=== PATIENT | female | born 1945 | race Caucasian/White ===

== ENCOUNTER → 2024-02-10 08:32 | Outpatient (REF) | payer MEDICARE, OTHER, SELFPAY ==
[2024-02-10 09:22] LABS: % Basophils 0.5 % (0-2); % Eosinophils 2.9 % (0-6); % Immature Granulocytes 0.5 % (0-0.5); % Lymphocytes 48.3 % (20.5-51.1); % Neutrophils 42.8 % (42.2-75.2); Absolute Eosinophils 0.2 10^3/uL (0-0.7); Absolute Lymphocytes 2.8 10^3/uL (1.2-3.4); Absolute Monocytes 0.3 10^3/uL (0.1-0.6); Absolute Neutrophils 2.5 10^3/uL (1.4-6.5); Hematocrit 36.6 % (37.0-47.0); Hemoglobin 12.2 g/dL (12.0-16.0); Mean Corp Hgb Conc. 33.3 g/dL (33.0-37.0); Mean Corpuscular Hgb 31.2 pg (27.0-31.0); Mean Corpuscular Volume 93.6 fL (81.0-99.0); Mean Platelet Volume 10.3 fL (7.4-10.4); Nucleated Red Blood Cells % 0 %; Platelet Count 148 10^3/uL (130-400); Red Blood Cell Count 3.91 10^6/uL (4.20-5.40); Red Cell Dist. Width 13.8 % (11.5-14.5); White Blood Cell Count 5.8 10^3/uL (4.8-10.8)
[2024-02-10 10:00] LABS: ALT (SGPT) 19 U/L (0-35); AST (SGOT) 24 U/L (14-36); Albumin 3.8 g/dl (3.5-5.0); Alkaline Phosphatase 57 U/L (38-126); Blood Urea Nitrogen 20 mg/dl (7-17); Calcium 9.5 mg/dl (8.4-10.2); Carbon Dioxide 31 mmol/L (22-30); Chloride 102 mmol/L (98-107); Glucose 96 mg/dl (70-99); HDL Cholesterol 46 mg/dl; LDL Cholesterol, Calculated 64 mg/dl; Potassium 3.7 mmol/L (3.5-5.1); Sodium 140 mmol/L (135-145); Total Bilirubin 0.5 mg/dl (0.2-1.3); Total Cholesterol 140 mg/dl (50-199); Total Protein 5.9 g/dl (6.3-8.2); Triglyceride 153 mg/dl (10-149); Very Low Density Lipoprotein 30 mg/dl (0-30); eGFR > 60.00
[2024-02-10 10:28] LABS: TSH Reflex To Free T4 0.21 uIU/ml (0.47-4.68)
== END ==
LOC: REG 08:32
PROVIDERS: ATTENDING PHYSICIAN Nurse Practitioner; FAMILY PHYSICIAN Internal Medicine
DX: Z00.01 Encounter for general adult medical examination with abnormal findings (principal); I10 Essential (primary) hypertension; E03.9 Hypothyroidism, unspecified; E66.01 Morbid (severe) obesity due to excess calories; R56.9 Unspecified convulsions
CPT/HCPCS: 36415; 80053; 80061; 84439; 84443; 85025

== ENCOUNTER 2024-04-28 15:30 | Emergency (ER) | payer MEDICARE, OTHER, SELFPAY ==
[2024-04-28 15:33] VITALS: BP 182/90
[2024-04-28 15:57] LABS: % Basophils 0.4 % (0-2); % Eosinophils 2.9 % (0-6); % Immature Granulocytes 0.3 % (0-0.5); % Lymphocytes 24.1 % (20.5-51.1); % Monocytes 6.4 % (1.7-9.3); % Neutrophils 65.9 % (42.2-75.2); Absolute Eosinophils 0.2 10^3/uL (0-0.7); Absolute Lymphocytes 1.7 10^3/uL (1.2-3.4); Absolute Monocytes 0.4 10^3/uL (0.1-0.6); Absolute Neutrophils 4.5 10^3/uL (1.4-6.5); Hematocrit 38.1 % (37.0-47.0); Hemoglobin 12.4 g/dL (12.0-16.0); Mean Corp Hgb Conc. 32.5 g/dL (33.0-37.0); Mean Corpuscular Hgb 30.9 pg (27.0-31.0); Mean Platelet Volume 10.7 fL (7.4-10.4); Nucleated Red Blood Cells % 0 %; Platelet Count 136 10^3/uL (130-400); Red Blood Cell Count 4.01 10^6/uL (4.20-5.40); White Blood Cell Count 6.8 10^3/uL (4.8-10.8)
[2024-04-28 16:06] LABS: ALT (SGPT) 17 U/L (0-35); AST (SGOT) 26 U/L (14-36); Albumin 4.1 g/dl (3.5-5.0); Alkaline Phosphatase 66 U/L (38-126); Blood Urea Nitrogen 21 mg/dl (7-17); Calcium 9.5 mg/dl (8.4-10.2); Carbon Dioxide 28 mmol/L (22-30); Chloride 105 mmol/L (98-107); Glucose 102 mg/dl (70-99); Potassium 4.5 mmol/L (3.5-5.1); Sodium 139 mmol/L (135-145); Total Bilirubin 0.9 mg/dl (0.2-1.3); Total Protein 6.2 g/dl (6.3-8.2); eGFR > 60.00
--- NOTE | 2024-04-28 17:17 | ED.GENMED ---
History of Present Illness
General
Chief Complaint: Skin Problem
Source: patient
Time Seen by Provider: 04/28/24 16:22
Travel History
Have you had any contact with someone who has COVID-19?: No
Do you have any symptoms of coronavirus? Fever > 100 degrees, chills, cough, shortness of breath, sore throat, loss of taste or smell, muscle aches, or headache?: No
History of Present Illness
History of Present Illness:
78-year-old female presents to the emergency room for evaluation of a wound that she believes is infected. Patient was traveling last week and struck the left lower leg object creating an injury. She was seen at a medical facility close to where
she was and sutures were placed. The wound had been feeling okay at evidently healing well up until the past 3 to 4 days when she observed redness appearing. The area around the wound has been quite tender. She denies any fever or chills.
Past History
Past History
ED Past Medical History: Arrthythmia (afib on Coumadin), HTN, Seizures and Hypothyroidism
ED Past Surgical History: Gynecological and Orthopedic
Social History
Tobacco: Non-smoker
Alcohol: Occasional
Drug: None
Personal:
Living: with family
Phy Exam
Physical Exam
Physical Exam:
General: Awake, Alert, Oriented X3. No acute distress.
Vitals: unremarkable
Head: Atraumatic
Eyes: Pupils equal, EOMI
Throat: Airway intact, no exudates
Neck: Trachea midline
Neuro: Nonfocal
Skin: Warm, dry, no rash
Extremities: pulses equal b/l.
Left lower extremity is observed to have a 4 cm x 2 cm area of erythema with a sutured wound in the center. This appears to have been a skin flap which was sutured closed. What appears to be the flap portion of the wound is looking
somewhat necrotic.. There is no purulent discharge.
Course
Orders/Labs/Results
Orders:
Orders
04/28/24 15:41
CMP [Comprehensive Metabolic Panel] Urgent
Complete Blood Count/With Diff Urgent
04/28/24 17:16
Doxycycline [Vibramycin] 100 mg PO NOW STA
Abnormal Lab Results
04/28/24
15:41
RBC 4.01 L 10^6/uL
(4.20-5.40)
MCHC 32.5 L g/dL
(33.0-37.0)
MPV 10.7 H fL
(7.4-10.4)
BUN 21 H mg/dl
(7-17)
Glucose 102 H mg/dl
(70-99)
Total Protein 6.2 L g/dl
(6.3-8.2)
04/28/24 15:41
04/28/24 15:41
Vital Signs
Initial and Last Documented VS:
Initial Vital Signs
Temp Pulse Resp BP Pulse Ox
98.3 F 80 20 182/90 95
04/28/24 15:33 04/28/24 15:33 04/28/24 15:33 04/28/24 15:33 04/28/24 15:33
Last Documented Vital Signs
Temp Pulse Resp BP Pulse Ox
98.3 F 78 18 168/84 95
04/28/24 15:33 04/28/24 17:25 04/28/24 17:25 04/28/24 17:25 04/28/24 17:25
MDM/Problems Addressed
Differential Diagnosis Includes:
Wound infection, reaction to suture material, abscess
MDM/Problems Addressed:
This does appear to be an infected wound. Sutures were removed. Wound edges remain approximated. No significant purulent discharge. Some of the sutures pulled through the skin very easily suggesting that it was a very thin layer of skin. Wound
will be treated with Neosporin and a dressing. Will start doxycycline to cover MRSA. Considered Bactrim but given her age and the fact that she is on Entresto concerned about hyper kalemia with Bactrim. Patient does not appear to require
hospitalization. Will discharge her on Doxy have her follow-up with the wound care center
*Pulse Oximetry
Patient hypoxic: no
*Critical Care Note
Total Time (30-74mins, 75-104mins- exclusive of procedures): Not Applicable
ED Attending Note
-
Portions of this chart may have been created with voice recognition software.� Occasional wrong word or��sound alike� substitutions may have occurred due to the inherent limitations of voice recognition software.
Discharge Plan
Departure
Patient Disposition: Home (Routine Discharge)
Date of Disposition: 04/28/24
Time of Disposition: 17:17
Patient with high blood pressure during this ER visit?: Yes
Condition: Good
Discharge Problem:
Infected wound
Instructions: Wound Infection, BLOOD PRESSURE
Prescriptions:
New
doxycycline monohydrate 100 mg capsule
100 mg PO BID Qty: 14 0RF
No Action
lacosamide [Vimpat] 150 MG tablet
150 mg PO BID 30 Days Qty: 60 0RF
furosemide [Lasix] 40 mg Tablet
40 mg PO DAILY
pentoxifylline 400 mg Tablet Extended Release
400 mg PO TID
Hold Instructions: Resume on 10/01/22.
Farxiga 10 mg Tablet
10 mg PO DAILY
Entresto 97-103 mg Tablet
1 tab PO BID
atorvastatin 20 mg Tablet
20 mg PO QPM Qty: 30 0RF
levothyroxine 150 MCG tablet
100 mcg PO DAILY
acetaminophen-codeine 300-60 mg Tablet
1 tab PO Q6H PRN (Reason: pain)
Santyl 250 unit/gram Ointment
1 applic TOPICAL DAILY PRN (Reason: rash)
metronidazole 1 % Gel
1 applic TOPICAL DAILY
multivitamin Tablet
1 tab PO DAILY
coenzyme Q10 [CoQ-10] 100 mg Capsule
100 mg PO DAILY
glucosamine sulfate [Glucosamine] 500 mg Tablet
500 mg PO DAILY
taimufyf-zope-clcwm-oreg-capry 100 mg-150 mg- 50 mg-150 mg Capsule
1 cap PO
Probiotic Acidophilus 1.5 mg (250 million cell) Capsule
1,000 mmu cells PO DAILY
gabapentin 400 mg Capsule
400 mg PO HS Qty: 30 0RF
gabapentin 100 mg Capsule
100 mg PO DAILY Qty: 30 0RF
metoprolol succinate 25 mg Tablet Extended Release 24 Hr
25 mg PO DAILY Qty: 90 1RF
Eliquis 5 mg tablet
5 mg PO BID Qty: 60 1RF
Rx Instructions:
Start 09/23/22
Referrals:
Geoff Miranda MD [Family Provider] -
[facility] [[facility]] -
Interventions
Interventions:
*Risk Screen - Suicide Last Done: 04/28/24 15:33
*General Assessment Last Done: 04/28/24 15:33
*Neglect/Abuse Screening Last Done: 04/28/24 15:33
ED- Fall Risk Assessment Last Done: 04/28/24 17:25
*Nursing Disposition Last Done: 04/28/24 17:34
ED-Skin Assessment Last Done: 04/28/24 17:25
Discharge Date and Time
Discharge Date/Time: 04/28/24 17:35
Print Language: LITHUANIAN
[2024-04-28 17:25] VITALS: BP 168/84
[2024-04-28] MEDS: VIBRAMYCIN 100 MG PO (17:28)
== END 2024-04-28 17:35 | disposition home or self-care (01) ==
LOC: EMR 15:30
PROVIDERS: Emergency Medicine; EMERGENCY PHYSICIAN Emergency Medicine; FAMILY PHYSICIAN Internal Medicine
DX: T81.41XA Infection following a procedure, superficial incisional surgical site, initial encounter (principal); L08.9 Local infection of the skin and subcutaneous tissue, unspecified; Y83.8 Other surgical procedures as the cause of abnormal reaction of the patient, or of later complication, without mention of misadventure at the time of the procedure; I10 Essential (primary) hypertension; I48.91 Unspecified atrial fibrillation; E03.9 Hypothyroidism, unspecified; R56.9 Unspecified convulsions; Z79.01 Long term (current) use of anticoagulants
CPT/HCPCS: 99283; 80053; 85025

== ENCOUNTER → 2024-06-28 12:52 | Outpatient (REF) | payer MEDICARE, OTHER, SELFPAY | LOC: WOUND 12:52 | PROVIDERS: ATTENDING PHYSICIAN Surgery; FAMILY PHYSICIAN Internal Medicine | DX: L97.222 Non-pressure chronic ulcer of left calf with fat layer exposed (principal); I87.2 Venous insufficiency (chronic) (peripheral); I83.029 Varicose veins of left lower extremity with ulcer of unspecified site; E66.01 Morbid (severe) obesity due to excess calories; R60.0 Localized edema; Z79.01 Long term (current) use of anticoagulants; I48.0 Paroxysmal atrial fibrillation; I10 Essential (primary) hypertension; Z96.652 Presence of left artificial knee joint | CPT/HCPCS: 11042; 99214 ==

== ENCOUNTER → 2024-07-06 11:28 | Outpatient (REF) | payer MEDICARE, OTHER, SELFPAY | LOC: WOUND 11:28 | PROVIDERS: ATTENDING PHYSICIAN Surgery; FAMILY PHYSICIAN Internal Medicine | DX: L97.222 Non-pressure chronic ulcer of left calf with fat layer exposed (principal); I87.2 Venous insufficiency (chronic) (peripheral); L03.116 Cellulitis of left lower limb; I83.029 Varicose veins of left lower extremity with ulcer of unspecified site; E66.01 Morbid (severe) obesity due to excess calories; R60.0 Localized edema; I48.0 Paroxysmal atrial fibrillation; Z96.652 Presence of left artificial knee joint; Z79.01 Long term (current) use of anticoagulants | CPT/HCPCS: 11042 ==

== ENCOUNTER → 2024-07-13 11:25 | Outpatient (REF) | payer MEDICARE, OTHER, SELFPAY | LOC: WOUND 11:25 | PROVIDERS: ATTENDING PHYSICIAN Surgery; FAMILY PHYSICIAN Internal Medicine | DX: L97.222 Non-pressure chronic ulcer of left calf with fat layer exposed (principal); L03.116 Cellulitis of left lower limb; I83.029 Varicose veins of left lower extremity with ulcer of unspecified site; E66.01 Morbid (severe) obesity due to excess calories; R60.0 Localized edema; Z79.01 Long term (current) use of anticoagulants; I48.0 Paroxysmal atrial fibrillation; I10 Essential (primary) hypertension; Z96.652 Presence of left artificial knee joint | CPT/HCPCS: 11042; 11045 ==

== ENCOUNTER → 2024-07-20 10:29 | Outpatient (REF) | payer MEDICARE, OTHER, SELFPAY | LOC: WOUND 10:29 | PROVIDERS: ATTENDING PHYSICIAN Surgery; FAMILY PHYSICIAN Internal Medicine | DX: L97.222 Non-pressure chronic ulcer of left calf with fat layer exposed (principal); I87.2 Venous insufficiency (chronic) (peripheral); I73.9 Peripheral vascular disease, unspecified; E83.59 Other disorders of calcium metabolism; I83.029 Varicose veins of left lower extremity with ulcer of unspecified site; E66.01 Morbid (severe) obesity due to excess calories; R60.0 Localized edema; Z79.01 Long term (current) use of anticoagulants; I48.0 Paroxysmal atrial fibrillation; I10 Essential (primary) hypertension; Z96.652 Presence of left artificial knee joint | CPT/HCPCS: 29581; 99214 ==

== ENCOUNTER → 2024-07-27 11:01 | Outpatient (REF) | payer MEDICARE, OTHER, SELFPAY | LOC: WOUND 11:01 | PROVIDERS: ATTENDING PHYSICIAN Surgery; FAMILY PHYSICIAN Internal Medicine | DX: I87.313 Chronic venous hypertension (idiopathic) with ulcer of bilateral lower extremity (principal); L97.222 Non-pressure chronic ulcer of left calf with fat layer exposed; L97.211 Non-pressure chronic ulcer of right calf limited to breakdown of skin; I87.2 Venous insufficiency (chronic) (peripheral); I73.9 Peripheral vascular disease, unspecified; E83.59 Other disorders of calcium metabolism; E66.01 Morbid (severe) obesity due to excess calories; R60.0 Localized edema; I48.0 Paroxysmal atrial fibrillation; Z79.01 Long term (current) use of anticoagulants; I10 Essential (primary) hypertension; Z96.652 Presence of left artificial knee joint | CPT/HCPCS: 97597 ==

== ENCOUNTER → 2024-08-03 10:53 | Outpatient (REF) | payer MEDICARE, OTHER, SELFPAY | LOC: WOUND 10:53 | PROVIDERS: ATTENDING PHYSICIAN Surgery; FAMILY PHYSICIAN Internal Medicine | DX: I87.313 Chronic venous hypertension (idiopathic) with ulcer of bilateral lower extremity (principal); L97.222 Non-pressure chronic ulcer of left calf with fat layer exposed; L97.211 Non-pressure chronic ulcer of right calf limited to breakdown of skin; I87.2 Venous insufficiency (chronic) (peripheral); I73.9 Peripheral vascular disease, unspecified | CPT/HCPCS: 29580 ==

== ENCOUNTER → 2024-08-10 12:42 | Outpatient (REF) | payer MEDICARE, OTHER, SELFPAY | LOC: WOUND 12:42 | PROVIDERS: ATTENDING PHYSICIAN Surgery; FAMILY PHYSICIAN Internal Medicine | DX: I87.313 Chronic venous hypertension (idiopathic) with ulcer of bilateral lower extremity (principal); L97.222 Non-pressure chronic ulcer of left calf with fat layer exposed; L97.211 Non-pressure chronic ulcer of right calf limited to breakdown of skin; I87.2 Venous insufficiency (chronic) (peripheral); I73.9 Peripheral vascular disease, unspecified; E83.59 Other disorders of calcium metabolism; I83.029 Varicose veins of left lower extremity with ulcer of unspecified site; E66.01 Morbid (severe) obesity due to excess calories; R60.0 Localized edema; I48.0 Paroxysmal atrial fibrillation; I10 Essential (primary) hypertension; Z96.652 Presence of left artificial knee joint; Z79.01 Long term (current) use of anticoagulants | CPT/HCPCS: 29580; 99213 ==

== ENCOUNTER → 2024-08-17 10:02 | Outpatient (REF) | payer MEDICARE, OTHER, SELFPAY | LOC: WOUND 10:02 | PROVIDERS: ATTENDING PHYSICIAN Surgery; FAMILY PHYSICIAN Internal Medicine | DX: I87.313 Chronic venous hypertension (idiopathic) with ulcer of bilateral lower extremity (principal); L97.222 Non-pressure chronic ulcer of left calf with fat layer exposed; L97.211 Non-pressure chronic ulcer of right calf limited to breakdown of skin; I87.2 Venous insufficiency (chronic) (peripheral); I73.9 Peripheral vascular disease, unspecified; E83.59 Other disorders of calcium metabolism; I83.029 Varicose veins of left lower extremity with ulcer of unspecified site; E66.01 Morbid (severe) obesity due to excess calories; R60.0 Localized edema; Z79.01 Long term (current) use of anticoagulants; I48.0 Paroxysmal atrial fibrillation; Z96.652 Presence of left artificial knee joint | CPT/HCPCS: 29580; 99213 ==

== ENCOUNTER → 2024-08-17 10:53 | Outpatient (REF) | payer MEDICARE, OTHER, SELFPAY ==
[2024-08-17 12:43] LABS: ALT (SGPT) 24 U/L (0-35); AST (SGOT) 31 U/L (14-36); Albumin 4.1 g/dl (3.5-5.0); Alkaline Phosphatase 72 U/L (38-126); Direct Bilirubin 0.2 mg/dl (0.0-0.4); HDL Cholesterol 45 mg/dl; LDL Cholesterol, Calculated 78 mg/dl; Total Bilirubin 0.8 mg/dl (0.2-1.3); Total Cholesterol 149 mg/dl (50-199); Total Protein 6.1 g/dl (6.3-8.2); Triglyceride 133 mg/dl (10-149); Very Low Density Lipoprotein 26 mg/dl (0-30)
[2024-08-17 12:54] LABS: Free T4 1.31 ng/dl (0.78-2.19)
[2024-08-17 13:08] LABS: TSH 0.12 uIU/ml (0.47-4.68)
== END ==
LOC: REG 10:53
PROVIDERS: ATTENDING PHYSICIAN Internal Medicine
DX: E03.9 Hypothyroidism, unspecified (principal); I10 Essential (primary) hypertension; E66.01 Morbid (severe) obesity due to excess calories
CPT/HCPCS: 36415; 80061; 80076; 84439; 84443

== ENCOUNTER → 2024-08-24 10:57 | Outpatient (REF) | payer MEDICARE, OTHER, SELFPAY | LOC: WOUND 10:57 | PROVIDERS: ATTENDING PHYSICIAN Surgery; FAMILY PHYSICIAN Internal Medicine | DX: I87.313 Chronic venous hypertension (idiopathic) with ulcer of bilateral lower extremity (principal); L97.222 Non-pressure chronic ulcer of left calf with fat layer exposed; I87.2 Venous insufficiency (chronic) (peripheral); I73.9 Peripheral vascular disease, unspecified; E83.59 Other disorders of calcium metabolism; I83.029 Varicose veins of left lower extremity with ulcer of unspecified site; E66.01 Morbid (severe) obesity due to excess calories; R60.0 Localized edema; I48.0 Paroxysmal atrial fibrillation; I10 Essential (primary) hypertension; Z96.652 Presence of left artificial knee joint; Z79.01 Long term (current) use of anticoagulants | CPT/HCPCS: 29580; 99213 ==

== ENCOUNTER → 2024-08-25 10:53 | Outpatient (REF) | payer MEDICARE, OTHER, SELFPAY | LOC: RAD 10:53 | PROVIDERS: ATTENDING PHYSICIAN Internal Medicine | DX: M79.609 Pain in unspecified limb (principal); M25.561 Pain in right knee; R60.0 Localized edema | CPT/HCPCS: 93971 ==

== ENCOUNTER → 2024-08-31 11:01 | Outpatient (REF) | payer MEDICARE, OTHER, SELFPAY | LOC: WOUND 11:01 | PROVIDERS: ATTENDING PHYSICIAN Surgery; FAMILY PHYSICIAN Internal Medicine | DX: I87.313 Chronic venous hypertension (idiopathic) with ulcer of bilateral lower extremity (principal); L97.222 Non-pressure chronic ulcer of left calf with fat layer exposed; I87.2 Venous insufficiency (chronic) (peripheral); I73.9 Peripheral vascular disease, unspecified; E83.59 Other disorders of calcium metabolism | CPT/HCPCS: 29580 ==

== ENCOUNTER → 2024-09-09 10:23 | Outpatient (REF) | payer MEDICARE, OTHER, SELFPAY | LOC: WOUND 10:23 | PROVIDERS: ATTENDING PHYSICIAN Surgery; FAMILY PHYSICIAN Internal Medicine | DX: I87.313 Chronic venous hypertension (idiopathic) with ulcer of bilateral lower extremity (principal); L97.222 Non-pressure chronic ulcer of left calf with fat layer exposed; I87.2 Venous insufficiency (chronic) (peripheral); I73.9 Peripheral vascular disease, unspecified; E83.59 Other disorders of calcium metabolism; I83.029 Varicose veins of left lower extremity with ulcer of unspecified site; E66.01 Morbid (severe) obesity due to excess calories; R60.0 Localized edema; I48.0 Paroxysmal atrial fibrillation; Z79.01 Long term (current) use of anticoagulants; I10 Essential (primary) hypertension; Z96.652 Presence of left artificial knee joint | CPT/HCPCS: 29580; 99213 ==

== ENCOUNTER → 2024-09-15 14:18 | Outpatient (REF) | payer MEDICARE, OTHER, SELFPAY | LOC: RAD 14:18 | PROVIDERS: ATTENDING PHYSICIAN Surgery; FAMILY PHYSICIAN Internal Medicine | DX: L97.222 Non-pressure chronic ulcer of left calf with fat layer exposed (principal); I73.9 Peripheral vascular disease, unspecified | CPT/HCPCS: 93922; 93925 ==

== ENCOUNTER → 2024-09-16 10:22 | Outpatient (REF) | payer MEDICARE, OTHER, SELFPAY | LOC: WOUND 10:22 | PROVIDERS: ATTENDING PHYSICIAN Surgery; FAMILY PHYSICIAN Internal Medicine | DX: I87.313 Chronic venous hypertension (idiopathic) with ulcer of bilateral lower extremity (principal); L97.222 Non-pressure chronic ulcer of left calf with fat layer exposed; I87.2 Venous insufficiency (chronic) (peripheral); I73.9 Peripheral vascular disease, unspecified; E83.59 Other disorders of calcium metabolism; E66.01 Morbid (severe) obesity due to excess calories; R60.0 Localized edema; I48.0 Paroxysmal atrial fibrillation; I10 Essential (primary) hypertension; Z79.01 Long term (current) use of anticoagulants; Z96.652 Presence of left artificial knee joint | CPT/HCPCS: 99213 ==

== ENCOUNTER → 2024-09-23 10:26 | Outpatient (REF) | payer MEDICARE, OTHER, SELFPAY | LOC: WOUND 10:26 | PROVIDERS: ATTENDING PHYSICIAN Surgery; FAMILY PHYSICIAN Internal Medicine | DX: I87.313 Chronic venous hypertension (idiopathic) with ulcer of bilateral lower extremity (principal); L97.222 Non-pressure chronic ulcer of left calf with fat layer exposed; I87.2 Venous insufficiency (chronic) (peripheral); I73.9 Peripheral vascular disease, unspecified; E83.59 Other disorders of calcium metabolism; E66.01 Morbid (severe) obesity due to excess calories; R60.0 Localized edema; Z79.01 Long term (current) use of anticoagulants; I48.0 Paroxysmal atrial fibrillation; I10 Essential (primary) hypertension; Z96.652 Presence of left artificial knee joint | CPT/HCPCS: 99212 ==

== ENCOUNTER → 2024-12-23 10:16 | Outpatient (REF) | payer MEDICARE, OTHER, SELFPAY | LOC: HWRCS 10:16 | PROVIDERS: ATTENDING PHYSICIAN Internal Medicine Cardiovascular Disease; FAMILY PHYSICIAN Internal Medicine | DX: I50.32 Chronic diastolic (congestive) heart failure (principal) | CPT/HCPCS: 93306 ==

== ENCOUNTER 2025-01-05 08:27 | Day surgery (SDC) | payer MEDICARE, OTHER, SELFPAY ==
[2024-12-29 13:08] VITALS: BMI 38.6
[2025-01-05] VITALS (11 sets, daily range): BP systolic 109–178; BP diastolic 61–85; BMI 36.9
--- NOTE | 2025-01-05 11:57 | CONSULT.STRU ---
Consultation
-
Date/Time Consultation Requested: 01/05/2025
Date/Time Consultation Performed: 01/25/2025
Requesting Provider: Mikhail Abbasi DO
Performing Provider: NIHARIKA Rodríguez
Reason for Consultation: / TAVR
Patient History
Physicians
Family Physician: Jarad Miranda MD
Outpatient Barber Stylist: Claudia De Luna MD
Primary Barber Stylist: Claudia Smith MD
History of Present Illness
Ms. Esquivel is a very pleasant robust 79 yof with a history of , PAF, ICM, HTN, SSS, pericardial effusion s/p ppm, lymphedema, and seizures. 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 Her echocardiogram from 12/23/2024 is
notable for EF 75%, AV P/m 83/48, RESHMA 0.7, trace AI, mild MR, mild TR. Cardiac catheterization from today (01/05/2025) is significant for Right dominant circulation with a 30% lesion in the proximal/mid RCA, a 30% lesion in the distal AV groove
circumflex as it approaches the LPL and luminal irregularities in the LAD. Moderately elevated filling pressures (PCWP = 21 mmHg at 100.7 kg).Mild, postcapillary pulmonary hypertension (mean PA = 27 mmHg, PCWP = 21 mmHg, CO = 4.66 L/min, PVR = 1.29
Jacobo units). From a symptomatology standpoint, patient states, she has noticed an increase in STORM and LE edema, however she has orthopedic limitations and is unable to walk far distances. She denies CP, dizziness, PND. Her weight has been stable.
Discussed the pathophysiology and treatment options of including SAVR and TAVR. Explained the evaluation process comprising of CT scan, CT surgical consult, Dental clearance, and a heart team discussion. TaVR booklet, prescriptions, appointments,
and contact information provided to patient. Allowed for and answered questions at bedside.
Past Medical History
Past Medical History: Arrhythmias (SSS), Atrial Fib (PAF), HTN, Hypothyroidism, Valvular Disease (aortic stenosis) and Other (ICM, lymphedema, HLD, seizures, diverticulosis, external hemorroids, colonic polyps)
Past Surgical History
Past Surgical History: Hysterectomy, Orthopedic ((L) TKA, (L) femur ORIF, ) and Other (PPM, (R) cataract, DCCV)
Dental History
Dr. Echevarria--Patient states she is UTD
Family History
Mother: at Age (70) and Cause of (DE)
Father: at Age (70)
Family Medical History: CAD and Hypertension
Social History
Alcohol: Occasional
Drug: None
Tobacco: Former Smoker (quit 54 years ago)
Personal:
Living: With Spouse
Employment: Retired (retired nurse x 5 years)
Allergies
Allergy/AdvReac Type Severity Reaction Status Date / Time
No Known Allergies Allergy Verified 01/05/25 08:47
Home Medications
�Medication �Instructions �Recorded �Confirmed �Type
lacosamide 150 mg tablet (Vimpat) 150 mg PO BID ANTICONVULSANT 30 09/28/21 01/05/25 Rx
days #60 tabs
dapagliflozin propanediol 10 mg 10 mg PO DAILY Heart Failure 08/08/22 01/05/25 History
tablet (Farxiga)
furosemide 40 mg tablet (Lasix) 40 mg PO DAILY Fluid 08/08/22 01/05/25 History
retention/Swelling
pentoxifylline 400 mg 400 mg PO Q8H intermittant 08/08/22 01/05/25 History
tablet,extended release claudication
sacubitril 97 mg-valsartan 103 mg 1 tab PO BID Heart Failure 08/08/22 01/05/25 History
tablet (Entresto)
Lactobacillus acidophilus 250 1,000 mmu cells PO DAILY Supplement 09/13/22 01/05/25 History
million cell capsule (Probiotic
Acidophilus)
acetaminophen 300 mg-codeine 60 mg 1 tab PO Q6H PRN pain 09/13/22 01/05/25 History
tablet
coenzyme Q10 100 mg capsule 100 mg PO DAILY 09/13/22 01/05/25 History
(CoQ-10)
glucosamine sulfate 500 mg tablet 500 mg PO DAILY Supplement 09/13/22 01/05/25 History
(Glucosamine)
levothyroxine 150 mcg tablet 100 mcg PO DAILY Thyroid 09/13/22 01/05/25 History
multivitamin 1 tab PO DAILY Supplement 09/13/22 01/05/25 History
turmeric 100 mg-sakshi 150 1 cap PO DAILY Supplement 09/13/22 01/05/25 History
mg-olive 50 mg-oreg 150 mg-capryl
capsule
apixaban 5 mg tablet (Eliquis) 5 mg PO BID #60 tabs 09/17/22 01/05/25 Rx
metoprolol succinate 25 mg 25 mg PO DAILY #90 tabs 09/17/22 01/05/25 Rx
tablet,extended release 24 hr
atorvastatin 20 mg tablet 20 mg PO HS 01/05/25 01/05/25 History
gabapentin 300 mg capsule 300 mg PO HS 01/05/25 01/05/25 History
mirabegron 50 mg tablet,extended 50 mg PO DAILY 01/05/25 01/05/25 History
release 24 hr (Myrbetriq)
STS%
STS %: 5.79
Review of Systems
-
History Source: Patient
General: Reports Fatigue
HEENT: Reports No Symptoms
Respiratory: Reports SOB and STORM
Cardiac: Reports Palpitations (with a-fib)
Abdomen/GI: Reports No Symptoms
: Reports No Symptoms
Musculoskeletal: Reports No Symptoms
Skin: Reports No Symptoms
Neurological: Reports No Symptoms
Vascular: Reports No Symptoms
Physical Exam
Vital Signs
Temp 98.0 F 01/05/25 08:52
Pulse 61 01/05/25 08:52
Resp Rate 18 01/05/25 08:52
Blood pressure 178/76 01/05/25 08:52
Blood pressure extremity used: Right upper arm 01/05/25 08:52
Position: Sitting 01/05/25 08:52
MAP (cuff-Ileana Monitor) 103 01/05/25 08:47
SaO2 100 01/05/25 08:52
Oxygen Mode of Delivery Room air 01/05/25 08:52
Can the patient verbally communicate their pain? Yes 01/05/25 08:52
Pain scale ratin 01/05/25 08:52
Actual Weight 100.698 kg 01/05/25 09:07
Body Mass Index (BMI) 36.9 01/05/25 09:07
Labs
12/29/2024:
HH: 12.8/40.6
Plt: 133K
BUN/Cr 20/0.8
GFR >60
Diagnostic Studies
ECHOCARDIOGRAM 12/23/2024:
CONCLUSIONS
Hyperdynamic left ventricular systolic function.
Left ventricular ejection fraction is greater than 75% by Aparicio's method of
discs.
Severe aortic stenosis. Trace aortic regurgitation.
Compared to previous echo, the aortic stenosis is now severe.
Aortic Valve
Thickened aortic valve with restricted leaflet motion. Severe aortic stenosis.
The peak gradient across the valve is 83 mmHg with a mean of 48 mmHg. Using a
LVOT diameter of 2.0 cm, the RESHMA is 0.7 cm sq. Trace aortic regurgitation.
CARDIAC CATHETERIZATION 01/05/2025:
CONCLUSIONS:
1. Right dominant circulation with a 30% lesion in the proximal/mid RCA, a 30% lesion in the distal AV groove circumflex as it approaches the LPL and luminal irregularities in the LAD.
2. Moderately elevated filling pressures (PCWP = 21 mmHg at 100.7 kg).
3. Mild, postcapillary pulmonary hypertension (mean PA = 27 mmHg, PCWP = 21 mmHg, CO = 4.66 L/min, PVR = 1.29 Jacobo units).
4. Preserved systolic function (CI = 2.28 L/min/m�).
5. Severe aortic valve stenosis by echocardiogram.
RECOMMENDATIONS:
1. Expectant management after cardiac catheterization via right radial/antecubital approach.
2. Limited weight bearing on the right for one week.
3. TAVR workup.
4. Continue guideline directed medical therapy as hemodynamics will tolerate.
5. Increase atorvastatin to 40 mg daily. Goal LDL <55
Procedure Type:�Isolated AVR
Perioperative Outcome Estimate %
Operative Mortality 5.79%
Morbidity & Mortality 11.1%
Stroke 0.929%
Renal Failure 2.86%
Reoperation 3.53%
Prolonged Ventilation 7.83%
Deep Sternal Wound Infection 0.125%
Long Hospital Stay (>14 days) 6.86%
Short Hospital Stay (<6 days)* 26.8%
Exam
General: Well Developed, Well Nourished and No Apparent Distress
HEENT: Normocephalic
Neck: Trachea Midline
Respiratory: Clear (Anteriorly)
Cardiac: Murmur (II/ EMILIA)
GI: Soft and Non Tender
Rectal: Deferred by Provider
Skin: Warm
Neuro: Awake, Alert, Oriented and AO x 3
Psych: Calm
Assessment / Plan
-
Aortic Stenosis
Continue with TAVR evalution
Trend creatinine (RX given)
TAVR CT SCAN (01/25)
CT surgical consult (TT 01/31)
Frailty testing and KCCQ12
Dental clearance
Will hold Eliquis x 48 before TAVR and initiate aspirin while Eliquis held.
Heart team discussion
Data Reviewed
-
EKG: Tracing Personally Visualized and interpreted (A-paced)
Elevator Technician: Report Reviewed by me and Discussed with Physician
Echo: Report Reviewed by me and Discussed with Physician
Labs: Labs Reviewed by me
Old Records: Reviewed (Dr. Smith's OV)
Total Time Spent with Patient (in minutes): 45
--- NOTE | 2025-01-05 11:59 | ITS.CL.CATH ---
Card Puncher - Catheterization
Cardiac Catheterization
Procedure Report:
CARDIAC CATHETERIZATION REPORT
Date of Procedure: 01/05/2025
Referring: Janet Smith M.D.
Indication: Severe aortic valve stenosis.
PROCEDURE:
1. Right heart catheterization.
2. Coronary angiography.
A total of 9 minutes of procedural/moderate sedation was utilized. An independent medical voucher clerk was present to assist with and help manage the patient's level of consciousness and physiologic status.
ACCESS:
1. 6 Beninese right radial artery using a modified Seldinger technique under ultrasound guidance. Ultrasound image obtained.
2. 5 Beninese right and vein using a modified Seldinger technique under ultrasound guidance. Ultrasound image obtained.
CATHETERS:
1. 5 Beninese balloon wedge.
2. 5 Beninese JR4.
3. 5 Beninese JL 3.5.
HEMODYNAMIC DATA
Weight (kg): 100.7
AO (s/d/x, mmHg): 159/72/101
LV (s/x, mmHg): Not obtained.
PCWP (a/v/x, mmHg):
PA (s/d/x, mmHg):
RV (s/x, mmHg): 40
RA (a/v/x, mmHg): 13/11/11
SVC SvO2 (%): 70.3
IVC SvO2 (%): Not obtained.
RA SvO2 (%): Not obtained.
RV SvO2 (%): Not obtained.
PA SvO2 (%): 69.0
SaO2 (%): 91.3
Hbg (g/dL): 12.4
ANGEL LUIS
CO (L/min): 4.66
CI (L/min/m2): 2.28
Thermodilution
CO (L/min): Not performed.
CI (L/min/m2): Not performed.
TPG (mmHg): 6
PVR (Jacobo Units): 1.29
SVR (dynes*seconds*cm^-5): 1545
AVO2 Diff (Volume %): 3.76
AV gradient (x, mmHg): Not obtained.
AV area (cm2): Not obtained
MV gradient (x, mmHg): Not obtained.
MV area (cm2): Not obtained.
LEFT VENTRICULOGRAPHY: Not performed.
AORTOGRAPHY: Not performed.
CORONARY ANGIOGRAPHY
Dominance: Right.
Left Main: Normal size, bifurcating vessel. There is no coronary artery disease.
LAD: Normal size vessel giving rise to 1 significant diagonal. There are luminal irregularities in the LAD.
Ramus: Congenitally absent.
Circumflex: Large size, nondominant vessel giving rise to 2 large obtuse marginals before terminating as a left posterolateral branch. There is a 30% lesion in the distal AV groove circumflex as it approaches the LPL.
RCA: Normal size, dominant vessel. There is a long, 30% lesion in the proximal/mid RCA.
INTERVENTIONS
None.
Closure Device: Vascular band for the right radial artery, manual pressure for the right antecubital vein.
Radiation dose (mGy): 284.28
DAP (cm2.Gy): 16.9681
Fluoroscopy time (minutes): 3.3
CONCLUSIONS:
1. Right dominant circulation with a 30% lesion in the proximal/mid RCA, a 30% lesion in the distal AV groove circumflex as it approaches the LPL and luminal irregularities in the LAD.
2. Moderately elevated filling pressures (PCWP = 21 mmHg at 100.7 kg).
3. Mild, postcapillary pulmonary hypertension (mean PA = 27 mmHg, PCWP = 21 mmHg, CO = 4.66 L/min, PVR = 1.29 Jacobo units).
4. Preserved systolic function (CI = 2.28 L/min/m�).
5. Severe aortic valve stenosis by echocardiogram.
RECOMMENDATIONS:
1. Expectant management after cardiac catheterization via right radial/antecubital approach.
2. Limited weight bearing on the right for one week.
3. TAVR workup.
4. Continue guideline directed medical therapy as hemodynamics will tolerate.
5. Increase atorvastatin to 40 mg daily. Goal LDL <55.
Copy to: Janet Smith M.D., Jarad Miranda M.D.
Mikhail Abbasi DO, FACC, FACP
== END 2025-01-05 14:30 | disposition home or self-care (01) ==
LOC: CATH 08:27
PROVIDERS: ATTENDING PHYSICIAN Internal Medicine Cardiovascular Disease; FAMILY PHYSICIAN Internal Medicine; OTHER PHYSICIAN Internal Medicine Cardiovascular Disease
DX: I35.0 Nonrheumatic aortic (valve) stenosis (principal); I25.10 Atherosclerotic heart disease of native coronary artery without angina pectoris; I27.29 Other secondary pulmonary hypertension; I48.0 Paroxysmal atrial fibrillation; I10 Essential (primary) hypertension; Z95.0 Presence of cardiac pacemaker; I49.5 Sick sinus syndrome; E03.9 Hypothyroidism, unspecified; Z79.01 Long term (current) use of anticoagulants; E78.5 Hyperlipidemia, unspecified; Z79.890 Hormone replacement therapy; Z82.49 Family history of ischemic heart disease and other diseases of the circulatory system; Z79.84 Long term (current) use of oral hypoglycemic drugs; Z87.891 Personal history of nicotine dependence; Z86.0100 Personal history of colon polyps, unspecified; Z96.659 Presence of unspecified artificial knee joint; Z90.710 Acquired absence of both cervix and uterus; I31.39 Other pericardial effusion (noninflammatory); Z79.899 Other long term (current) drug therapy
CPT/HCPCS: 93456; 93460; C1894; Q9967

== ENCOUNTER → 2025-01-20 11:16 | Outpatient (REF) | payer MEDICARE, OTHER, SELFPAY ==
[2025-01-20 13:13] LABS: Blood Urea Nitrogen 21 mg/dl (7-17); Calcium 9.6 mg/dl (8.4-10.2); Carbon Dioxide 34 mmol/L (22-30); Chloride 102 mmol/L (98-107); Glucose 100 mg/dl (70-99); Potassium 4.2 mmol/L (3.5-5.1); Sodium 140 mmol/L (135-145); eGFR > 60.00
== END ==
LOC: REG 11:16
PROVIDERS: ATTENDING PHYSICIAN Nurse Practitioner Acute Care; FAMILY PHYSICIAN Internal Medicine; REFERRING PHYSICIAN Internal Medicine Cardiovascular Disease
DX: I35.0 Nonrheumatic aortic (valve) stenosis (principal)
CPT/HCPCS: 36415; 80048

== ENCOUNTER → 2025-01-25 11:28 | Outpatient (REF) | payer MEDICARE, OTHER, SELFPAY | LOC: RAD 11:28 | PROVIDERS: ATTENDING PHYSICIAN Nurse Practitioner Acute Care; FAMILY PHYSICIAN Internal Medicine | DX: I35.0 Nonrheumatic aortic (valve) stenosis (principal) | CPT/HCPCS: 74174; 75572; Q9967 ==

== ENCOUNTER → 2025-02-23 14:27 | Outpatient (REF) | payer MEDICARE, OTHER, SELFPAY ==
[2025-02-23 15:49] LABS: HDL Cholesterol 44 mg/dl; LDL Cholesterol, Calculated 52 mg/dl; Total Cholesterol 121 mg/dl (50-199); Triglyceride 128 mg/dl (10-149); Very Low Density Lipoprotein 25 mg/dl (0-30)
[2025-02-23 16:18] LABS: TSH Reflex To Free T4 0.04 uIU/ml (0.47-4.68)
[2025-02-23 16:50] LABS: Free T4 1.37 ng/dl (0.78-2.19)
== END ==
LOC: REG 14:27
PROVIDERS: ATTENDING PHYSICIAN Internal Medicine
DX: E78.5 Hyperlipidemia, unspecified (principal); E03.9 Hypothyroidism, unspecified; E66.01 Morbid (severe) obesity due to excess calories
CPT/HCPCS: 36415; 80061; 84439; 84443

== ENCOUNTER 2025-03-03 05:29 | Inpatient (IN) | payer MEDICARE, OTHER, SELFPAY ==
--- NOTE | 2025-02-23 07:22 | HPS.HSE ---
Family Physician
-
Family Physician: Jarad Miranda
Chief Complaint
-
STORM/edema
PreTAVR
History of Present Illness
Ms. Esquivel is a very pleasant robust 79 yof with a history of , PAF, ICM, HTN, SSS, pericardial effusion s/p ppm, lymphedema, and seizures. 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 Her echocardiogram from 12/23/2024 is
notable for EF 75%, AV P/m 83/48, RESHMA 0.7, trace AI, mild MR, mild TR. Cardiac catheterization from today (01/05/2025) is significant for Right dominant circulation with a 30% lesion in the proximal/mid RCA, a 30% lesion in the distal AV groove
circumflex as it approaches the LPL and luminal irregularities in the LAD. Moderately elevated filling pressures (PCWP = 21 mmHg at 100.7 kg).Mild, postcapillary pulmonary hypertension (mean PA = 27 mmHg, PCWP = 21 mmHg, CO = 4.66 L/min, PVR = 1.29
Jacobo units). From a symptomatology standpoint, patient states, she has noticed an increase in STORM and LE edema, however she has orthopedic limitations and is unable to walk far distances. She denies CP, dizziness, PND. Her weight has been stable.
Patient has been reviewed with the heart team and recommended for 29mm Evolut Fx+ via left transfemoral access. She has been scheduled for TAVR 03/03/2025 with Tea Abbasi and Shaun.
Assessed patient in preadmission testing and confirmed medication list. Last dose Eliquis will be Friday (02/28) pm dose, last dose Farxiga will be Friday (02/27), instructed to hold Turner 3, she will take 325 mg aspirin Friday (03/01), aspirin 81mg
Fri (03/02) and (03/03), she will also take levothyroxine and Vimpat (03/03). Ms. Esquivel will arrive to the [facility] at 0530. Informed patient she will get a phone call from the heart team on Friday (03/02) to confirm time and
location of arrival. Reviewed the risks of the procedure as discussed in consult including stroke and vascular injury. Allowed for and answered questions.
Medical History
Past Medical History
Past Medical History: Reports Arrhythmia (Afib), HTN, Hypothyroidism, Seizures, Valvular Disease (Aortic stensosis) and Other (ICM, SSS (s/p PPM), lymphedema, arthritis, PAD)
Past Surgical History: Reports Cardiac (PPM), Gynocological (hysterectomy), Orthopedic ((L) TKA, (L) femur) and Other ((R) cataract)
Social History
Tobacco: Former Smoker
Alcohol: Occasional
Drug: None
Personal:
Living: With Family
Employment: Retired
Family History
Family History: CAD
Allergies / Home Medications
Allergies reflects when Allergies were last updated in [employer].
Home Medications with original date entered in [employer]
Atorvastatin Calcium 40 MG Tablet TAKE 1 TABLET BY MOUTH EVERY DAY
Calcium & Magnesium Carbonates
[id number] 100 MG Capsule as directed Orally
Eliquis(Apixaban) 5 MG Tablet TAKE 1 TABLET BY MOUTH TWICE DAILY
Entresto(Sacubitril-Valsartan) 97-103 MG Tablet TAKE 1 TABLET BY MOUTH TWICE DAILY
Estradiol 0.1 MG/GM Cream insert 1 gram Vaginal Daily for 2 weeks, then twice a week thereafter
Farxiga(Dapagliflozin Propanediol) 10 MG Tablet TAKE 1 TABLET BY MOUTH DAILY
Furosemide 40 MG Tablet 1 tablet Orally every other day
Gabapentin 300 MG Capsule 1 capsule Orally Once a day at bedtime
Glucosamine Chond Complex/MSM([facility]) - Tablet as directed Orally
Levothyroxine Sodium 100 MCG Tablet TAKE 1 TABLET BY MOUTH EVERY DAY IN THE MORNING ON AN EMPTY STOMACH
Metoprolol Succinate ER 25 MG Tablet Extended Release 24 Hour TAKE 1 TABLET BY MOUTH EVERY DAY
Multivitamin(Multiple Vitamin) - Tablet 1 tablet Orally Once a day
Myrbetriq(Mirabegron ER) 50 MG Tablet Extended Release 24 Hour 1 tablet Orally Once a day
Turner 3Other , Notes to Pharmacist: mushroom complex
TurmericVimpat(Lacosamide) 150 MG Tablet 1 tablet Orally Twice a day , Notes to Pharmacist: anticonvulsan
Allergy/Medication List:
NKDA
Review of Systems
-
History Source: Patient
A 12 point ROS was completed and negative except as noted: Yes
Constitutional: Reports Fatigue
Respiratory: Reports Trouble Breathing
Musculoskeletal: Reports Edema
Physical Exam
Physical Exam
General: Well Developed, Well Nourished, No Apparent Distress and Comfortable
HEENT: NormoCephalic and PERRLA
Respiratory: Clear
Cardiac: Regular Rhythm and Murmur (III/ EMILIA)
Breast: Deferred by me
GI: Soft, Non Tender and Non Distended
Rectal: Deferred by Provider
Genito-urinary: Deferred by me
Musculoskeletal: Edema, Left Lower Extremity and Edema, Right Lower Extremity
Skin: Warm and Dry
Neuro: Awake, Alert, Oriented and AO x 3
Psych: Calm
Data Reviewed
-
Diagnostic Radiology: Report Reviewed by me
CT Scan: Report Reviewed by me and Discussed with Physician (Reviewed TAVR CT scan with the heart team)
Medical Tests (Nuc Med, Echo, EKG etc): Report Reviewed by me and Discussed with Physician (Echo and cath reviewed with the heart team)
Lab Data: Labs Reviewed by me
Old Records: Reviewed
Impression/Plan
-
IMPRESSION/PLAN:
Aortic stenosis--TF TAVR planned for 03/03 with Drs. Dunn and Elroy
plan for 26mm Evolut FX+ via (L) TF access
Hold Eliquis x 48 hours, aspirin while Eliquis held
Hold Turner 3 starting 02/24
Hold Farxiga x 3 days
Continue levothyroxine and Vimpat including morning of TAVR
POD #1/#30 Echocardiogram
Cardiac rehab consult
Labs
-
Labs:
WBC 6.2 10^3/uL (4.8-10.8) 02/23/25 12:18
RBC 4.10 10^6/uL (4.20-5.40) L 02/23/25 12:18
Hgb 12.2 g/dL (12.0-16.0) 02/23/25 12:18
Hct 38.7 % (37.0-47.0) 02/23/25 12:18
Plt Count 148 10^3/uL (130-400) 02/23/25 12:18
Sodium 145 mmol/L (135-145) 02/23/25 12:18
Potassium 4.5 mmol/L (3.5-5.1) 02/23/25 12:18
Chloride 105 mmol/L (98-107) 02/23/25 12:18
Carbon Dioxide 30 mmol/L (22-30) 02/23/25 12:18
BUN 16 mg/dl (7-17) 02/23/25 12:18
Creatinine 0.8 mg/dL (0.6-1.0) 02/23/25 12:18
eGFR > 60.00 02/23/25 12:18
Glucose 89 mg/dl (70-99) 02/23/25 12:18
Calcium 10.1 mg/dl (8.4-10.2) 02/23/25 12:18
Lpw-E-Zghszentkfa Pept 490 pg/ml 02/23/25 12:18
Albumin 4.2 g/dl (3.5-5.0) 02/23/25 12:18
[2025-02-23 12:07] VITALS: BMI 40.7
[2025-02-23 12:51] LABS: % Basophils 0.8 % (0-2); % Eosinophils 6.3 % (0-6); % Immature Granulocytes 0.8 % (0-0.5); % Lymphocytes 24.8 % (20.5-51.1); % Monocytes 7.6 % (1.7-9.3); % Neutrophils 59.7 % (42.2-75.2); Absolute Basophils 0.1 10^3/uL (0-0.2); Absolute Eosinophils 0.4 10^3/uL (0-0.7); Absolute Immature Granulocytes 0.1 10^3/uL (0-0.05); Absolute Lymphocytes 1.5 10^3/uL (1.2-3.4); Absolute Monocytes 0.5 10^3/uL (0.1-0.6); Absolute Neutrophils 3.7 10^3/uL (1.4-6.5); Hematocrit 38.7 % (37.0-47.0); Hemoglobin 12.2 g/dL (12.0-16.0); Mean Corp Hgb Conc. 31.5 g/dL (33.0-37.0); Mean Corpuscular Hgb 29.8 pg (27.0-31.0); Mean Corpuscular Volume 94.4 fL (81.0-99.0); Mean Platelet Volume 10.7 fL (7.4-10.4); Nucleated Red Blood Cells % 0 %; Platelet Count 148 10^3/uL (130-400); Red Cell Dist. Width 13.5 % (11.5-14.5); White Blood Cell Count 6.2 10^3/uL (4.8-10.8)
[2025-02-23 13:04] LABS: ALT (SGPT) 15 U/L (0-35); AST (SGOT) 21 U/L (14-36); Albumin 4.2 g/dl (3.5-5.0); Alkaline Phosphatase 75 U/L (38-126); Blood Urea Nitrogen 16 mg/dl (7-17); Calcium 10.1 mg/dl (8.4-10.2); Carbon Dioxide 30 mmol/L (22-30); Chloride 105 mmol/L (98-107); Direct Bilirubin 0.2 mg/dl (0.0-0.4); Estimated Creatinine Clearance 65 ml/min; Glucose 89 mg/dl (70-99); Potassium 4.5 mmol/L (3.5-5.1); Sodium 145 mmol/L (135-145); Total Bilirubin 0.8 mg/dl (0.2-1.3); Total Protein 6.1 g/dl (6.3-8.2); eGFR > 60.00
[2025-02-23 13:06] LABS: INR 0.99; PT 13.6 Sec (11.4-14.6)
[2025-02-23 13:08] LABS: APTT 37.9 Sec (23.4-35.0)
[2025-02-23 13:12] LABS: NT-proBNP 490 pg/ml
[2025-02-23 13:20] LABS: Urine Albumin Negative (Neg - Trace); Urine Bilirubin Negative (Negative); Urine Character Clear (Clear); Urine Color Yellow; Urine Glucose 4+ (Negative); Urine Ketone Negative (Negative); Urine Leukocyte 1+ (Negative); Urine Nitrite Negative (Negative); Urine Occult Blood Negative (Negative); Urine Urobilinogen Negative (Neg - 1+); Urine pH 6.5 (5.0-9.0)
--- NOTE | 2025-02-23 13:42 | CM ---
CM met w/ patient during PATs for planned TAVR, 03/03.
Patient resides alone in an apartment @ [facility]. Apartment is one level, elevator accessible. Spouse lives several floors up from patient @ [place].
Pt. is indep. w/ ADLs, mobility with use of a RW; + drives. Has 2 sons that live locally; adult grandchildren as well.
Pt. has RX plan and uses [facility] in [place] for prescription needs.
Reviewed pre and post op routines.
Soap, shower instructions and TAVR booklet provided.
Reviewed post op MD appointments, Cardiac Rehab + visit from [facility] Transitional Care RN.
Plan is for TAVR, 03/03.
Anticipated DC plan is for home w/ [facility] Transitional [facility] RN.
CM to follow.
[2025-02-23 14:22] LABS: Urine Squamous Cell >30 /LPF (Few)
[2025-02-23 14:23] LABS: Urine Amorphous Seen
[2025-02-23 14:24] LABS: Urine Red Blood Cell 0-2 /HPF (0-2)
[2025-02-24 08:44] LABS: Glycohemoglobin (HgbA1c) 5.4 % (4.0-5.6)
[2025-03-03] VITALS (29 sets, daily range): BP systolic 92–184; BP diastolic 44–99; BMI 40.7; BMI 40.4
--- NOTE | 2025-03-03 06:18 | PTCARENOTE ---
Pt admitted into 2246- admission and assessment completed. b/l bps completed and documented as such. Clipped and CHG wipes completed. R fa 22G placed. Strength equal b/l on upper and lower limbs. PERLLA- pupil size 2. a paced on the monitor. Pt
ambulates slowly with the rolling walker and just supervision. R leg causes her intermittent pain w/ movement from the mid thigh to mid calf- she states it has been worked up by ortho and neuro without clear answers. she takes PRN Tylenol w/ codeine
in needed. call henao within reach.
--- NOTE | 2025-03-03 09:00 | W.CVOR.SURPR ---
CVOR Surgeon Immed Pre Op
-
I have examined this patient prior to performance of the scheduled procedure.
The patient's condition is unchanged from the time of the dictated/written History and
Physical and the patient is able to undergo the scheduled procedure.
--- NOTE | 2025-03-03 09:00 | W.IMMPOSTOP ---
Surgical Immed Post Op Note
-
[id number]
STRUCTURAL HEART PROCEDURE NOTE: TAVR
Preoperative Dx:
Severe aortic stenosis (P/M: 82.4/48.0, RESHMA 0.7)
Sick sinus syndrome s/p PPM - complicated by pericardial effusion
Atrial fibrillation on Eliquis
HTN/ HLD
Hypothyroidism
Syncope/collapse
Arthritis - ambulated w/ walker (Hx of L femoral ORIF)
Lymphedema, chronic B/L LE edema
Urinary urgency
Colonic polyps
External hemorrhoids
Postoperative Dx:
Same
Procedures:
1) L LEAFLET DISTRIBUTOR access w/ tactile, U/S, and fluoroscopic guidance, micropuncture technique, limited angiography, 8Fr dilator placement
2) Perclose x 2 to L LEAFLET DISTRIBUTOR, 8Fr sheath placement
3) R CFV access w/ U/S and fluoroscopic guidance, micropuncture technique, long 6Fr sheath placement
4) R LEAFLET DISTRIBUTOR access w/ tactile, U/S, and fluoroscopic guidance, micropuncture technique, limited angiography, long 6Fr sheath placement
5) Placement of temporary pacing wire w/ threshold testing
6) Placement of pigtail in NCC w/ limited aortography & confirmation of cusp overlap views
7) Placement of 14Fr COOK sheath via L LEAFLET DISTRIBUTOR access
8) Wire purchase across stenotic AV (AL-1, soft-tip straight, table J-wire, pigtail catheter, LVEDP assessment [21mmHg], lunderquist wire)
9) Fluoroscopic inspection of TAVR valve
10) Pre-TAVR BAV w/ 20mm
11) L TF TAVR w/ placement of 29mm EVOLUT FX+ (no recaptures)
12) Completion aortography
13) Completion TTE (mean gradient 8mmHg, trace PVL)
14) Attempted DCCV cardioversion - unsuccessful
15) Removal of TAVR valve delivery system/in-line sheath w/ L LEAFLET DISTRIBUTOR mgmt w/ perclose sutures x 2; manual pressure
16) Completion L ileofemoral angiography
17) Removal of temporary pacing wire
18) Removal of R LEAFLET DISTRIBUTOR 6Fr sheath w/ mgmt w/ 6Fr angioseal; manual pressure
19) Removal of R CFV 6Fr sheath w/ mgmt w/ manual pressure (protamine administration)
Cardiac Surgeon:
Poli Dunn M.D.
Revolving Inventory Clerk:
Mikhail Abbasi D.O.
Anesthesia:
MAC & local to B/L groins
Implants:
Medtronic Evolut Fx+, 29mm, SN: [id number]
Perclose x 2 to L LEAFLET DISTRIBUTOR
6Fr angioseal x 1 to R LEAFLET DISTRIBUTOR
Cath Data:
Start: 0804hrs, Deploy: 0838hrs, End: 0855hrs
FT: 12.6min, mGy: 666.58, DAP: 64.1299, Contrast: 76
Post-TTE: mean gradient 8mmHg, trace PVL
Complications:
None
Condition:
Stable/guarded to recovery
--- NOTE | 2025-03-03 09:01 | ITS.CL.TAVR ---
Compressed Gas Tester - TAVR Report
TAVR PRocedure
Procedure Report:
TRANSCATHETER AORTIC VALVE REPLACEMENT REPORT
Date: 03/03/2025
Referring physician: Janet Smith M.D.
Preop diagnosis: Severe aortic valve stenosis.
Postop diagnosis: Severe aortic valve stenosis.
Procedure: Aortic balloon valvuloplasty using a #20 valvuloplasty balloon; transcatheter aortic valve replacement (TAVR) using a # 29 Medtronic CoreValve Evolut Pro XS.
Operators: Mikhail Abbasi DO, Poli Dunn M.D.
Findings: Severely calcified and stenotic aortic valve.
Anesthesia: Conscious sedation was provided by the anesthesia staff.
Estimated blood loss: Negligable.
Complications: None.
Condition: Stable
Procedure:
The patient was brought to the cardiac lab clerk after consent and was prepped and draped in standard sterile fashion. Conscious sedation was provided by the anesthesia staff. After a 'Time Out,' bilateral common femoral arteries and the right
common vein were accessed using a modified Seldinger technique with a micropuncture kit under ultrasound guidance. A 6 Tunisian sheath was placed in the right femoral vein. Angiography performed through the micropuncture sheath confirmed
satisfactory arterial placement in the right and left common femoral arteries. The micropuncture sheath was replaced with a 6Fr sheath in the right common femoral artery. In the left common femoral artery, the micropuncture sheath was removed and
an 8 Tunisian dilator was advanced over the wire. The dilator was removed and the left common femoral artery was preclosed with 2 Perc-Close devices. An 8 Tunisian sheath was placed in the left common femoral artery. A temporary pacing wire was
advanced through the right femoral vein and into the right ventricle. The pacemaker demonstrated good capture and was set to back up. A 5Fr pigtail catheter was advanced through the right femoral sheath and seated in the non-coronary cusp. The
valve overlap (IVORIAN 3, CAU 11) and three cusp co-planar (IVORIAN 27, CAU 9) angles were confirmed on aortography.
An AL-1 catheter was advanced through the 8Fr sheath, the J wire was exchanged for a Lunderquist wire and the catheter and the 8 Fr sheath was removed. A 12 Fr dilator was advanced over the Lunderquist wire to the descending aorta. The dilator was
removed and a 14 Fr Cook sheath was placed. The CoreValve was prepared on the back table and then inspected under fluoroscopy. Infolding of the valve was no higher than the 4th node. The AL-1 catheter was advanced over the Lunderquist wire, which
was then removed. The catheter was flushed and a straight wire was advanced through the AL-1 catheter. The straight wire was used to cross the valve, and the AL-1 catheter was prolapsed into the left ventricle. The straight wire was exchanged for
an exchange length J-wire and the AL-1 catheter was subsequently exchanged for a 5 Fr angled pigtail catheter. LVEDP was measured. The double curve Lunderquist wire was advanced through the pigtail catheter and placed in the apex of the left
ventricle. The pigtail catheter was removed.
A 20 mm valvuloplasty balloon was advanced over through the Cook sheath and seated at the level of the aortic valve. The patient underwent valvuloplasty under rapid pacing. The valvuloplasty balloon was removed over the Lunderquist wire.
The Cook sheath was removed and the in-line sheath was advanced over the Lunderquist wire through the LCFA into the descending aorta. The Corevalve was then advanced over the aortic arch and into the left ventricle. In the cusp overlap view, the
valve was slowly deployed to the point of flowering. The patient was rapidly paced in a de-escalating rate (from 140 bpm to 80 bpm) as the valve was deployed through the rumble strips to 80%. Injection confirmed a non-coronary cusp implant depth
of 1 mm. The image intensifier was taken to the 3 cusp overlap view to remove paralax. Injection in this view confirmed left coronary cusp implant depth of 1 mm. The decision was made to proceed with full deployment. The delivery handle with
slowly rotated counter clockwise until both paddles were released from the superior aspect of the valve. The Lunderquist wire was partially withdrawn to lift the nosecone of the valve delivery device. The delivery device was withdrawn to the
descending aorta and re-assembled. Transthoracic echocardiogram showed trace paravalvular insufficiency. Aortogram showed good valve deployment and trace aortic valve insufficiency. Mean gradient across the valve was 8 mmHg by echo.
Cineangiography was performed in a panting motion, confirming full expansion of the valve inlet.
After valve deployment, we noticed that the patient had lapsed into atrial fibrillation, a condition that she is known to have paroxysmally. She did have some very modest drop in her blood pressure. Given that she was sedated with new atrial
fibrillation during this visit, we opted to attempt DC cardioversion. After removing all equipment from the thorax, the defibrillator was synchronized and charged to 200 J. 1 DC cardioversion was performed. Unfortunately, the patient remained in
atrial fibrillation. Given that this is a chronic condition, we elected not to pursue any further rhythm control at this time.
The inline sheath was removed over the Lunderquist wire and hemostasis was achieved using the two Perc-Close devices. Lower extremity angiography showed excellent hemostasis and good runoff without evidence perforation or extravasation. The pigtail
catheter was removed over a J-wire and the right PUBLIC RELATIONS ACCOUNT SUPERVISOR was closed using a 6-Fr Angioseal. There was no evidence of consistent pacing requirement. The temporary pacer was removed. The venous sheath was removed. Manual pressure was applied with good
hemostasis of the right venous access. The patient was taken to recovery in good condition.
Implant Depth
Non-Coronary (mm): 1
Left Coronary (mm): 1
Radiation
Dose (mGy): 666.58
DAP (cm2.Gy): 64.1299
Fluoroscopy time (minutes): 12.6
TAVR Echo Gradient (mmHg): 8
LV (s/x, mmHg): 166/21
TAVR Cath Gradient (mmHg): Not obtained.
Conclusions:
1. Successful placement of #29 CoreValve Evolut Pro FX+ using a left percutaneous transfemoral approach with no acute complications.
2. Paroxysmal atrial fibrillation on chronic anticoagulation. Unsuccessful DC cardioversion.
Mikhail Abbasi DO, FACC, FACP
Copy: Janet Smith M.D., Jarad Miranda M.D.
--- NOTE | 2025-03-03 09:40 | PTCARENOTE ---
Patient received from lab animal technician AO x3, sleepy but arousable. A-fib HR 90-1115, POX 93-95% on room air. B/L groin dressing CDI, soft. Doppler pedal pulses, skin warm and dry. Purwick in place, due to void. Levophed at 2 mcg/min, MAP 70, BP 94/63. HOB
flat, ice chips given, call henao in reach
--- NOTE | 2025-03-03 09:52 | W.PN.UPDATE ---
Update Note
Progress Note Update
Reviewed Ms. Esquivel with the heart team in the preTAVR SDM meeting and confirmed a 29 mm Evolut via left transfemoral access. Patient will resume Eliquis post TAVR. LVEDP 21 mmHg. #29mm Evolut (serial# [id number]) successfully deployed via left
transfemoral access. Post implant MG 8 mmHg.
[2025-03-03] MEDS: SYNTHROID PO (10:54)
[2025-03-03] MEDS: VIMPAT PO (10:54)
--- NOTE | 2025-03-03 11:28 | CM ---
pt in OR today, cm following
--- NOTE | 2025-03-03 12:07 | PTCARENOTE ---
Patient sleeping eyes closed, denies pain or shortness of breath HR 130-140 non-sustained tachycardia, BP 121/47, POX 93% on room air. Now A-paced, HR in the 60-70's occasional PVC's. Notified Nenita Naranjo.
[2025-03-03] MEDS: ANCEF 5 IV (12:26)
[2025-03-03] MEDS: TRENTAL PO (12:56)
[2025-03-03] MEDS: ENTRESTO 97 MG/103 MG PO (12:57)
--- NOTE | 2025-03-03 13:08 | PTCARENOTE ---
Patient AO x 3, HOB elevated 30 degrees. B/L groins are soft and dry, Doppler pedals. Tolerating clear liquids, lunch ordered, call henao in reach
[2025-03-03] MEDS: THERAGRAN PO (14:21)
[2025-03-03] MEDS: VISBIOME PO (14:21)
[2025-03-03] MEDS: TOPROL XL PO (14:21)
[2025-03-03] MEDS: FARXIGA PO (14:21)
[2025-03-03] MEDS: MYRBETRIQ EXTENDED RELEASE PO (14:21)
[2025-03-03] MEDS: LIPITOR PO (14:21)
--- NOTE | 2025-03-03 16:05 | PTCARENOTE ---
Patient assisted out of bed, walked to the bathroom to void, purwick discontinued, siting in chair. A-paced HR 60. Femoral sites CDI, soft, BP 127/66
[2025-03-03] MEDS: TRENTAL 400 MG PO ×2 (16:38→23:11)
[2025-03-03] MEDS: ENTRESTO 97 MG/103 MG 1 TAB PO (20:05)
[2025-03-03] MEDS: VIMPAT 150 MG PO (20:05)
--- NOTE | 2025-03-03 20:33 | PTCARENOTE ---
Patient received at change of shift out of bed to the chair. Reports no complaints at this time except feeling tired. Denies pain. Right groin gauze with tegaderm C/D/I. Left groin gauze with tegaderm scant amount of drainage which was marked and
unchanged from the previous shift's assessment. Bilateral pedal pulses present with doppler. The patient reports sensation in lower extremities is at her baseline which includes her toes feeling numb and decreased sensation bilaterally to her lower
extremities. Neurological check WDL. A paced on telemetry. Oxygen saturation 99-100% on room air. Call henao within reach. Plan of care discussed. Care ongoing.
[2025-03-03] MEDS: NEURONTIN 300 MG PO (23:11)
[2025-03-04 02:10] VITALS: BP 119/58
[2025-03-04 02:18] VITALS: BMI 39.8
[2025-03-04 03:36] LABS: Hematocrit 33.2 % (37.0-47.0); Hemoglobin 10.8 g/dL (12.0-16.0); Mean Corp Hgb Conc. 32.5 g/dL (33.0-37.0); Mean Corpuscular Hgb 29.7 pg (27.0-31.0); Mean Corpuscular Volume 91.2 fL (81.0-99.0); Platelet Count 141 10^3/uL (130-400); Red Blood Cell Count 3.64 10^6/uL (4.20-5.40); Red Cell Dist. Width 13.6 % (11.5-14.5); White Blood Cell Count 7.9 10^3/uL (4.8-10.8)
[2025-03-04 04:02] LABS: Blood Urea Nitrogen 22 mg/dl (7-17); Calcium 9.5 mg/dl (8.4-10.2); Carbon Dioxide 26 mmol/L (22-30); Chloride 107 mmol/L (98-107); Estimated Creatinine Clearance 73 ml/min; Glucose 128 mg/dl (70-99); Potassium 4.4 mmol/L (3.5-5.1); Sodium 141 mmol/L (135-145); eGFR > 60.00
--- NOTE | 2025-03-04 05:50 | W.PN.CT ---
Today's Communication / Plan
-
-pod #1
-no issues overnight
-a-paced, some PVCs overnight
-Echo today
-current meds (Lipitor, Farxiga, Lasix, Toprol, Entresto). Will restart Eliquis
-encourage IS, ambulate
-possible d/c
Assessment / Plan
-
- Severe symptomatic - s/p Pre-TAVR BAV w/ 20mm; L TF TAVR w/ placement of 29mm EVOLUT FX+ (no recaptures) on 03/03/25, pod #1
- Post-TTE: mean gradient 8mmHg, trace PVL
- Sick sinus syndrome s/p PPM - complicated by pericardial effusion
- Paroxysmal Atrial fibrillation, on Eliquis
- HTN/ HLD
- Hypothyroidism
- Syncope/collapse
- Arthritis - ambulated w/ walker (Hx of L femoral ORIF)
- Lymphedema, chronic B/L LE edema
- Urinary urgency
- Colonic polyps
- External hemorrhoids
Discussed patient care with: Nursing and Care Team
Subjective
-
Date of Service: March 04, 2025
Objective Data
-
Lab Results
03/04/25 02:18
03/04/25 02:18
PT 13.6 Sec (11.4-14.6) 02/23/25 12:18
INR 0.99 02/23/25 12:18
APTT 37.9 Sec (23.4-35.0) H 02/23/25 12:18
Vital Signs
Vital Signs
Temp Pulse Resp BP Pulse Ox
98.6 F 60 18 119/58 94
03/04/25 02:10 03/04/25 03:00 03/04/25 02:10 03/04/25 02:10 03/04/25 02:10
CT Intake/Output/Weight
03/03/25 03/03/25 03/04/25
06:59 18:59 06:59
Intake Total 2103 / 2103
Output Total 500 / 500
Balance 1604 / 1604
SaO2: 94
Physical Exam
-
General: Awake and AOx3
Cardiovascular: Regular rate & rhythm, No Murmurs and No Rub
Respiratory: Clear
Incision: Other (groins are cdi, soft, nontender, no hematoma b/l)
Extremities: Edema +1 (chronic b/l)
Abdomen: soft, nontender, nondistended, + bowel sounds
Data Reviewed
-
Lab Results: Results Reviewed
Medications: Active Meds Reviewed
Chest X-Ray: Report Reviewed and Image Reviewed
ECG: Report Reviewed and Image Reviewed
[2025-03-04] MEDS: SYNTHROID 100 MCG PO (06:33)
[2025-03-04 07:04] VITALS: BP 161/67
[2025-03-04 07:05] VITALS: BP 157/55
--- NOTE | 2025-03-04 07:40 | W.PN.CD ---
Today's Communication / Plan
-
Echocardiogram.
Discharge pending echo.
Impression / Plan
-
Impression/Plan: 79 y/o female with HTN, HLD, non-obstructive CAD, PAD, SSS s/p PPM, PAF and severe admitted for elective TAVR.
#Severe
-Chronic, progressive.
-S/P #29 Medtronic CoreValve Evolut FX+ via left common femoral approach.
-Telemetry shows NSR/A-Paced.
-Bilateral femoral access sites are C/D/I.
-Antithrombotic therapy with apixaban.
-Echocardiogram pending.
#PAF
-Chronic.
-Currently in NSR/A-Paced. Unsuccessful DCCV when she lapsed into PAF during TAVR.
-Rate control with metoprolol.
-CHADS2-Vasc = 6 (CHF, HTN, Age x2, vascular disease, female).
-Resume apixaban.
#PAD
-Chronic, stable.
-High dose, high potency statin.
-Pentoxyfylline.
#HFpEF
-Chronic, not currently decompensated.
-GDMT.
#Dispo
-Discharge pending echocardiogram.
Subjective/Interval History:
TAVR yesterday.
No acute events.
DATA:
TAVR, 03/03/2025:
Conclusions:
1. Successful placement of #29 CoreValve Evolut Pro FX+ using a left percutaneous transfemoral approach with no acute complications.
2. Paroxysmal atrial fibrillation on chronic anticoagulation. Unsuccessful DC cardioversion.
Physical Exam
Vital Signs/Labs
Vital Signs
Temp Pulse Resp BP Pulse Ox
37.0 C 60 18 119/58 94
03/04/25 02:10 03/04/25 03:00 03/04/25 02:10 03/04/25 02:10 03/04/25 05:54
03/02/25 03/03/25 03/04/25
11:59 11:59 11:59
Actual Weight 103.3 kg 102 kg
03/04/25 02:18
03/04/25 02:18
PT 13.6 Sec (11.4-14.6) 02/23/25 12:18
INR 0.99 02/23/25 12:18
APTT 37.9 Sec (23.4-35.0) H 02/23/25 12:18
02/23/25
12:18
Aen-W-Njuylzpcybi Pept 490
Physical Exam
Constitutional: No acute distress and Comfortable
EENT: Anicteric and Moist mucous membranes
Cardiovascular: Rhythm & rate is regular, Pedal edema is absent, JVD pressure is normal, S1S2 is normal and Murmur/rub/gallop absent
Respiratory: Respiratory effort normal, Lungs clear to auscul., Wheeze Absent, Crackles Absent and Rhonchi Absent
GI: Soft, Distention absent, Flat, Non tender, Normal bowel sounds and Distention present
Neuro/Psych: AO x 3
Other: Cath Site (Bilateral access sites are C/D/I.)
Data Reviewed
-
Date of Service: March 04, 2025
Medical Decision Making: Reviewed Test Results, Independent Historian Assessment and Test Interpretation
EKG: Tracing Personally Visualized and interpreted and Report Reviewed by me
Echo: Tracing Personally Visualized and interpreted and Report Reviewed by me
X-Ray/CT/US/MRI/NUC/PET: Image Personally Visualized and interpreted and Report Reviewed by me
Medical Tests (PFT, Pathology etc): Image Personally Visualized and interpreted and Report Reviewed by me
Labs: Labs Reviewed by me
Old Records: Reviewed
[2025-03-04] MEDS: FARXIGA 10 MG PO (09:20)
[2025-03-04] MEDS: THERAGRAN 1 TABLET PO (09:21)
[2025-03-04] MEDS: TOPROL XL 25 MG PO (09:21)
[2025-03-04] MEDS: TRENTAL 400 MG PO (09:21)
[2025-03-04] MEDS: MYRBETRIQ EXTENDED RELEASE 50 MG PO (09:22)
[2025-03-04] MEDS: LIPITOR 40 MG PO (09:22)
[2025-03-04] MEDS: ENTRESTO 97 MG/103 MG 1 TAB PO (09:23)
[2025-03-04] MEDS: VISBIOME 1 CAP PO (09:23)
[2025-03-04] MEDS: VIMPAT 150 MG PO (09:23)
--- NOTE | 2025-03-04 09:23 | W.DCSUMMARY ---
Discharge Summary
Discharge Data
Date of Admission: 03/03/25
Date of Discharge: 03/04/25
-
Pending Results: No
Hospital Course
Primary care physician: Geoff Miranda
Outpatient print developer automatic: Claudia Smith
Inpatient consultants: [facility]
Procedures:
1. TAVR
Primary Diagnosis:
1. Severe aortic stenosis
Secondary Diagnoses:
1. Sick sinus syndrome s/p PPM - complicated by pericardial
effusion.
2. Atrial fibrillation on Eliquis
3. HTN
4. HLD
5. Hypothyroidism
6. Syncope
7. Arthritis - ambulated w/ walker (Hx of L femoral ORIF)
8. Lymphedema, chronic B/L LE edema
9. Urinary urgency
10. Colonic polyps
11. External hemorrhoids
12. Seizure disorder
13. Class II obesity (BMI 39.8)
HPI: 79-year-old female electively admitted on 03/03/25 for TAVR due to severe aortic stenosis.
Hospital course: Patient underwent left transfemoral TAVR #21 mm Evolut FX+ by Drs. Poli Dunn/Mikhail Abbasi. Patient had period of A-fib during procedure and required Levophed in the PACU which was transitioned off on transfer to IVU. Groin
sites are stable without bleeding or hematoma. Predischarge TTE was completed on 03/04 and reported LVEF 70-75%. Normal RV. Well-seated TAVR with normal gradients (17/8 mmHg) and no aortic regurgitation. Mild tricuspid regurgitation. Patient deemed
stable for discharge to home.
Home medication changes:
DC Aspirin
Discharge Plan
-
Patient Disposition: Home (Routine Discharge)
Discharge Diagnosis/Procedures: TF TAVR
Condition: Good
Diet: Low Fat, Low Cholesterol and 2 Gram Sodium
Activity: As tolerated
Driving Restrictions: No driving for 1 week
Bathing Restrictions: OK to Shower
Others Tests: Your 30-day echocardiogram is scheduled for 04/04/2025 @ 11:20am at [facility].
Other Services: Cardiac Rehab
Wound Care: No lotions, powders, or creams to puncture sites.
Specialty Instructions: Weigh Daily- Call MD for wt gain/loss 3 lbs overnight/5 lbs in 1 week
Referrals:
CT Transitional Care Nurse [Outside] (The Cardiothoracic Transitional Care Nurse will call you to set up a visit in 1-2 days.)
Kanwal Benavides CRNP [Specified Professional Personl] - 04/07/25 8:40 am
Geoff Miranda MD [Family Provider] -
Prescriptions:
Continued
lacosamide [Vimpat] 150 MG tablet
150 mg PO BID 30 Days Qty: 60 0RF
furosemide [Lasix] 40 mg Tablet
40 mg PO DAILY
pentoxifylline 400 mg Tablet Extended Release
400 mg PO Q8H
dapagliflozin propanediol [Farxiga] 10 mg Tablet
10 mg PO DAILY
Entresto 97-103 mg Tablet
1 tab PO BID
acetaminophen-codeine 300-60 mg Tablet
1 tab PO Q6H PRN (Reason: pain)
multivitamin Tablet
1 tab PO DAILY
coenzyme Q10 [CoQ-10] 100 mg Capsule
100 mg PO DAILY
glucosamine sulfate [Glucosamine] 500 mg Tablet
500 mg PO DAILY
oaawsllu-yjof-trgqe-oreg-capry 100 mg-150 mg- 50 mg-150 mg Capsule
1 cap PO DAILY
Probiotic Acidophilus 1.5 mg (250 million cell) Capsule
1,000 mmu cells PO DAILY
metoprolol succinate 25 mg Tablet Extended Release 24 Hr
25 mg PO DAILY Qty: 90 1RF
gabapentin 300 mg Capsule
300 mg PO HS
mirabegron [Myrbetriq] 50 mg Tablet Extended Release 24 Hr
50 mg PO DAILY
atorvastatin 40 mg tablet
40 mg PO DAILY Qty: 90 3RF
levothyroxine 100 mcg Tablet
100 mcg PO DAILY
Eliquis 5 mg tablet
5 mg PO BID
Discontinued
Adult Aspirin 81 mg Tablet
81 mg PO
Discharge Orders:
Discharge Patient (As Directed); Ordered 03/04/25
Ordered By: Nenita Naranjo
Care Plan Goals
Care Plan Goals:
Problem: Readiness for enhanced knowledge related to diagnosis and treatment plan
Goal: Understand your diagnosis and treatment plan needs, including medications if applicable.
Instructions: Know your diagnosis, underlying causes and treatment plan options, including medications if applicable. Consult with your health care team to learn about your diagnosis and treatment plan, including medications if applicable.
Discharge Date and Time
Print Language: UKRAINIAN
--- NOTE | 2025-03-04 09:49 | PTCARENOTE ---
Received patient this morning resting in bed. Scant drainage on left groin dressing, right groin dressing is dry and intact, pulses palpable by doppler. Neuro status intact, VSS. Patient is refusing her morning dose of po lasix, states she takes it
every other day and she did take it at home yesterday before coming in for TAVR. Echo done, awaiting results and d/c planning.
--- NOTE | 2025-03-04 10:36 | PN.CDI ---
CDI
- -
CDI:
Physician Documentation Request
Admit Date: 03/03/25 05:29
Dear Doctor Shaun,
Please review the following and provide your response in the progress notes.
Clinical Indicators:
Height: 5 ft 3 inch
Weight: 227 -(03/03)
BMI: 40.4
03/03 note reports patient as 'obese'
If possible, please provide an associated diagnosis related to the abnormal BMI, such as:
BMI > or = to 40
Overweight
Obesity:
Due to excess calories
Drug induced
Due to other cause
Severe or morbid obesity:
With alveolar hypoventilation (Obesity hypoventilation syndrome)
Without alveolar hypoventilation
- BMI is not significant
- Other
Use of terms such as suspected, likely, concern for, or probable (associated with a specific diagnosis that is being evaluated, monitored, or treated as if it exists) are acceptable and can be coded in the inpatient setting, when documented at the
time of discharge.
Thank you,
Reanna Lugo RN, BSN
CDI Specialist
tiger text
Please use your independent medical judgment in providing your response.
--- NOTE | 2025-03-04 10:41 | W.PN.UPDATE ---
Update Note
Progress Note Update
CDI query:
- Obesity
[2025-03-04 11:57] VITALS: BP 121/55
--- NOTE | 2025-03-04 15:33 | PTCARENOTE ---
Patient ordered for discharge home. Reviewed discharge instructions and follow up appointments with the patient and she states her understanding. Verified with CT surgery FLEXIBLE SHAFT WINDER that patient may resume her eliquis tonight. Patient discharged home with
her with CT transitional nursing care.
== END 2025-03-04 14:53 | disposition home or self-care (01) | DRG 267 ==
LOC: IVU 05:29
PROVIDERS: Nurse Practitioner; ADMITTING PHYSICIAN Thoracic Surgery (Cardiothoracic Vascular Surgery); CONSULT PHYSICIAN Internal Medicine; FAMILY PHYSICIAN Internal Medicine; OTHER PHYSICIAN Internal Medicine Cardiovascular Disease
PROC: 02RF38Z Replacement of Aortic Valve with Zooplastic Tissue, Percutaneous Approach (ICD-10-PCS; 2025-03-03)
DX: I35.0 Nonrheumatic aortic (valve) stenosis (principal); Z00.6 Encounter for examination for normal comparison and control in clinical research program; I50.32 Chronic diastolic (congestive) heart failure; I48.0 Paroxysmal atrial fibrillation; I49.5 Sick sinus syndrome; I89.0 Lymphedema, not elsewhere classified; G40.909 Epilepsy, unspecified, not intractable, without status epilepticus; I27.29 Other secondary pulmonary hypertension; I73.9 Peripheral vascular disease, unspecified; I25.5 Ischemic cardiomyopathy; E03.9 Hypothyroidism, unspecified; M19.90 Unspecified osteoarthritis, unspecified site; E66.812 Obesity, class 2; I25.10 Atherosclerotic heart disease of native coronary artery without angina pectoris; I11.0 Hypertensive heart disease with heart failure; E78.5 Hyperlipidemia, unspecified; R39.15 Urgency of urination; Z68.39 Body mass index [BMI] 39.0-39.9, adult; Z79.01 Long term (current) use of anticoagulants; Z79.899 Other long term (current) drug therapy; Z87.891 Personal history of nicotine dependence; Z95.0 Presence of cardiac pacemaker
CPT/HCPCS: 93308; 33361; 36415; 71045; 71046; 80048; 80053; 81003; 81015; 82248; 83036; 83880; 85025; 85027; 85347; 85610; 85730; 86850; 86900; 86901; 87070; 87086; 93005; 93321; 93325; C1760; C1769; C1894; Q9967

== ENCOUNTER → 2025-04-11 14:50 | Outpatient (REF) | payer MEDICARE, OTHER, SELFPAY | LOC: HWRCS 14:50 | PROVIDERS: ATTENDING PHYSICIAN Nurse Practitioner; FAMILY PHYSICIAN Internal Medicine | DX: Z95.2 Presence of prosthetic heart valve (principal); I35.0 Nonrheumatic aortic (valve) stenosis; I48.0 Paroxysmal atrial fibrillation | CPT/HCPCS: 93306 ==

== ENCOUNTER → 2025-07-15 14:54 | Outpatient (REF) | payer MEDICARE, OTHER, SELFPAY | LOC: RCS 14:54 | PROVIDERS: ATTENDING PHYSICIAN Internal Medicine Cardiovascular Disease; FAMILY PHYSICIAN Internal Medicine | DX: I35.1 Nonrheumatic aortic (valve) insufficiency (principal); I35.0 Nonrheumatic aortic (valve) stenosis | CPT/HCPCS: 93308 ==